=== PATIENT | female | born 1955 | race Caucasian/White ===

== ENCOUNTER → 2018-10-30 | Outpatient (CLI) | payer OTHER ==
[~2018-10-30] MED LIST: FERROUS SU325 MG/TAB PO; TYLENOL 500MG500 MG PO
== END ==
LOC: MC.RAD 10:47
DX: Z12.31 Encounter for screening mammogram for malignant neoplasm of breast (principal)

== ENCOUNTER → 2019-11-21 | Outpatient (CLI) | payer OTHER | LOC: MC.RAD 18:13 | DX: Z12.31 Encounter for screening mammogram for malignant neoplasm of breast (principal) ==

== ENCOUNTER → 2021-12-01 | Outpatient (CLI) | payer OTHER ==
[2021-12-01 11:28] LABS: BASO # 0.1 K/mm3 (0.0-0.2); BASO % 0.6 % (0.0-2.0); EOS # 0.2 K/mm3 (0.0-0.7); EOS % 1.9 % (0.0-4.0); GRAN # 5.4 K/mm3 (1.4-6.5); GRAN % 63.8 % (42.2-75.2); HEMATOCRIT 38.9 % (37.0-47.0); HEMOGLOBIN 13.6 g/dl (12.5-16.0); LYMPH % 23.9 % (20.0-51.0); MEAN CELL VOLUME 86 fl (80.0-100.0); MEAN CORPUSCULAR HEMOGLOBIN 30 pg (27-31); MEAN CORPUSCULAR HGB CONC 35 g/dl (33.0-37.0); MEAN PLATELET VOLUME 9.6 fl (7.4-10.4); MONO # 0.8 K/mm3 (0.1-0.6); MONO % 9.6 % (1.7-9.3); PLATELET COUNT 308 K/mm3 (130-400); REDCELL DISTRIBUTION WIDTH-CV 12.7 % (11.5-14.5)
[2021-12-01 11:50] LABS: ALBUMIN 3.5 gm/dL (3.4-4.8); BILIRUBIN,TOTAL 0.5 mg/dL (0.2-1.2); CALCIUM 9.7 mg/dL (8.4-10.2); CREATININE, serum 0.77 mg/dL (0.57-1.11); POTASSIUM 3.4 mmol/L (3.5-4.5); TOTAL PROTEIN 8.1 gm/dL (6.2-8.1)
[2021-12-01 12:14] LABS: ERYTHROCYTE SEDIMENTATION RATE 72 mm/hr (0-30)
== END ==
LOC: COL.LAB 10:13
PROVIDERS: Family Medicine
DX: R10.32 Left lower quadrant pain (principal)

== ENCOUNTER 2022-01-28 16:01 | Observation (INO) | payer OTHER ==
[~2022-01-28] VITALS: Ht 157.5 cm; Wt 86.4 kg
[2022-01-28 17:03] LABS: BASO # 0.1 K/mm3 (0.0-0.2); BASO % 0.5 % (0.0-2.0); EOS % 0.3 % (0.0-4.0); GRAN # 8.8 K/mm3 (1.4-6.5); GRAN % 78.7 % (42.2-75.2); HEMOGLOBIN 14.5 g/dl (12.5-16.0); LYMPH # 1.5 K/mm3 (1.2-3.4); LYMPH % 13.8 % (20.0-51.0); MEAN CELL VOLUME 86 fl (80.0-100.0); MEAN CORPUSCULAR HEMOGLOBIN 30 pg (27-31); MEAN CORPUSCULAR HGB CONC 35 g/dl (33.0-37.0); MEAN PLATELET VOLUME 9.4 fl (7.4-10.4); MONO # 0.7 K/mm3 (0.1-0.6); MONO % 6.3 % (1.7-9.3); PLATELET COUNT 315 K/mm3 (130-400); RED BLOOD COUNT 4.78 M/mm3 (4.10-5.30); REDCELL DISTRIBUTION WIDTH-CV 12.6 % (11.5-14.5)
[2022-01-28 17:19] LABS: ALBUMIN 3.9 gm/dL (3.4-4.8); BILIRUBIN,TOTAL 0.6 mg/dL (0.2-1.2); C-REACTIVE PROTEIN 1.22 mg/dL (0.00-0.50); CALCIUM 10.3 mg/dL (8.4-10.2); CREATININE, serum 0.83 mg/dL (0.57-1.11); POTASSIUM 3.1 mmol/L (3.5-4.5)
[2022-01-28 18:02] LABS: COLLECTION METHOD CLEAN CATCH
[2022-01-28 18:25] LABS: AMORPHOUS CRYSTAL Present (NOT PRESENT); MUCOUS Present (NOT PRESENT); URINE APPEARANCE Cloudy (CLEAR/HAZY); URINE BACTERIA None Seen /hpf (NONE SEEN); URINE COLOR Yellow (YELLOW)
[2022-01-28 18:26] LABS: PH 8.5 (5.0-8.5); URINE BLOOD Negative (NEGATIVE); URINE GLUCOSE Negative (NEGATIVE); URINE KETONE Negative (NEGATIVE); URINE NITRATE Negative (NEGATIVE); URINE PROTEIN(semi-quant) Negative (NEGATIVE); URINE UROBILINOGEN 0.2 E.U/dL (0.2-1.0)
[2022-01-28] MEDS ORDERED: HCTZ 25MG TAB25 MG PO (18:51)
[2022-01-29] VITALS (11 sets, daily range): BP systolic 120–142; BP diastolic 61–78; PULSE 63–97; TEMP 97.6–99.9
--- NOTE | 2022-01-29 11:28 | NUR ---
Janki: Scientologist Situation: Insight Leader stopped by room on rounds Background: Pt was resting and content Assessment: No needs right now. Pt appreciated the visit Recommendation: Insight Leader will follow up as needed
[2022-01-29] MEDS ORDERED: NORCO 325 MG-51 TAB PO (13:57)
--- NOTE | 2022-01-29 15:29 | NUR ---
PT RESTING IN THE BED, AOX4, DAUGHTER AT THE BEDSIDE, CALL LIGHT IN HAND, DIET ADVANCED, PT IS ORDERING FOOD
--- NOTE | 2022-01-29 15:44 | NUR ---
Patient off unit. Unable to complete intake
--- NOTE | 2022-01-29 19:35 | NUR ---
PT DRESSED, SITTING IN CHAIR AT BEDSIDE. PT READY FOR DISCHARGE. HAS EATEN AND VOIDED, PAIN IS CONTROLLED WITH NORCO. REVIEWED DISCHARGE INSTRUCTIONS WITH PT. REMOVED INT FROM LEFT FOREARM, ANGIOCATH INTACT.
--- NOTE | 2022-01-29 19:45 | NUR ---
PT DISCHARGED TO PRIVATE CAR VIA W/C. COPY OF DISCHARGE INSTRUCTIONS SENT WITH PT. PERSONAL BELONGINGS RETURNED TO PATIENT.
== END 2022-01-29 19:45 | disposition home or self-care (01) ==
LOC: COL.ER 16:01 → SURG 18:37
PROVIDERS: Nurse Practitioner; ADMIT Surgery
DX: K80.00 Calculus of gallbladder with acute cholecystitis without obstruction (principal); E66.01 Morbid (severe) obesity due to excess calories; K31.A19 Gastric intestinal metaplasia without dysplasia, unspecified site
CPT/HCPCS: G0378; J0330; J0696; J1100; J1170; J2250; J2270; J2405; J2543; J2704; J3010; J7030; Q9967

== ENCOUNTER 2022-01-31 07:49 | Emergency (ER) | payer OTHER ==
[~2022-01-31] VITALS: Ht 157.5 cm; Wt 86.4 kg
[~2022-01-31 07:49] MED LIST changes: +HCTZ 25MG TAB25 MG PO; +NORCO 325 MG-51 TAB PO
[2022-01-31 07:55] VITALS: TEMP 98.1
[2022-01-31 08:26] LABS: BASO % 0.3 % (0.0-2.0); EOS % 0.4 % (0.0-4.0); GRAN % 66.5 % (42.2-75.2); HEMOGLOBIN 12.6 g/dl (12.5-16.0); LYMPH # 2.3 K/mm3 (1.2-3.4); LYMPH % 25.3 % (20.0-51.0); MEAN CELL VOLUME 89 fl (80.0-100.0); MEAN CORPUSCULAR HEMOGLOBIN 30 pg (27-31); MEAN CORPUSCULAR HGB CONC 34 g/dl (33.0-37.0); MEAN PLATELET VOLUME 9.5 fl (7.4-10.4); MONO # 0.6 K/mm3 (0.1-0.6); MONO % 7.1 % (1.7-9.3); PLATELET COUNT 277 K/mm3 (130-400); RED BLOOD COUNT 4.16 M/mm3 (4.10-5.30); REDCELL DISTRIBUTION WIDTH-CV 13.4 % (11.5-14.5)
[2022-01-31 08:28] LABS: HEMATOCRIT 36.9 % (37.0-47.0)
[2022-01-31 08:43] LABS: ALBUMIN 2.8 gm/dL (3.4-4.8); BILIRUBIN,TOTAL 0.4 mg/dL (0.2-1.2); CALCIUM 9.2 mg/dL (8.4-10.2); CREATININE, serum 0.77 mg/dL (0.57-1.11); POTASSIUM 3.3 mmol/L (3.5-4.5)
[2022-01-31] MEDS ORDERED: FLAGYL500 MG PO (10:34)
[2022-01-31] MEDS ORDERED: CIPRO 500MG TA500 MG PO (10:34)
[2022-01-31 11:43] VITALS: BP 174/90; PULSE 64
== END 2022-01-31 11:53 | disposition home or self-care (01) ==
LOC: COL.ER 07:49
PROVIDERS: Personal Emergency Response Attendant
DX: K57.32 Diverticulitis of large intestine without perforation or abscess without bleeding (principal); Z88.2 Allergy status to sulfonamides; Z90.49 Acquired absence of other specified parts of digestive tract
CPT/HCPCS: J2270; J2405; J7030; Q9967

== ENCOUNTER 2022-02-12 14:50 | Inpatient (IN) | payer OTHER, MEDICARE ==
[~2022-02-12] VITALS: Ht 157.5 cm; Wt 80.4 kg
[~2022-02-12 14:50] MED LIST changes: +CIPRO 500MG TA500 MG PO; +FLAGYL500 MG PO
[2022-02-12 16:31] LABS: HEMOGLOBIN 12.2 g/dl (12.5-16.0); MEAN CELL VOLUME 88 fl (80.0-100.0); MEAN CORPUSCULAR HEMOGLOBIN 30 pg (27-31); MEAN CORPUSCULAR HGB CONC 34 g/dl (33.0-37.0); MEAN PLATELET VOLUME 8.7 fl (7.4-10.4); PLATELET COUNT 660 K/mm3 (130-400); RED BLOOD COUNT 4.12 M/mm3 (4.10-5.30); REDCELL DISTRIBUTION WIDTH-CV 13.2 % (11.5-14.5)
[2022-02-12 16:32] LABS: HEMATOCRIT 36.1 % (37.0-47.0)
[2022-02-12 16:54] LABS: COLLECTION METHOD CLEAN CATCH
[2022-02-12 17:03] LABS: PH 5.5 (5.0-8.5); URINE APPEARANCE Clear (CLEAR/HAZY); URINE COLOR Yellow (YELLOW)
[2022-02-12 17:04] LABS: URINE GLUCOSE Negative (NEGATIVE); URINE KETONE 3+ (NEGATIVE); URINE NITRATE Positive (NEGATIVE); URINE PROTEIN(semi-quant) 2+ (NEGATIVE)
[2022-02-12 17:05] LABS: URINE BLOOD Negative (NEGATIVE)
[2022-02-12 17:06] LABS: BAND 37 % (0-10); EOSINOPHIL 1 % (0-4); LYMPHOCYTE 12 % (20.0-51.0); NEUTROPHILS 43 % (42.0-75.2); PLATELET ESTIMATE INCREASED (NORMAL)
[2022-02-12 17:07] LABS: MUCOUS Present (NOT PRESENT); SQUAMOUS EPITHELIAL >50 /hpf (0-10); URINE BACTERIA None Seen /hpf (NONE SEEN)
[2022-02-12 17:08] LABS: ALBUMIN 2.4 gm/dL (3.4-4.8); BILIRUBIN,TOTAL 0.8 mg/dL (0.2-1.2); CALCIUM 9.3 mg/dL (8.4-10.2); CREATININE, serum 0.86 mg/dL (0.57-1.11); POTASSIUM 3.3 mmol/L (3.5-4.5); TOTAL PROTEIN 8.1 gm/dL (6.2-8.1)
[2022-02-12 21:26] VITALS: BP 140/71; PULSE 89; TEMP 99.2
--- NOTE | 2022-02-12 21:50 | NUR ---
THE PATIENT ARRIVED VIA CART FROM THE ED. THE PATIENT IS ALERT AND ORIENTED NO S/S OF DISTRESS NOTED. THE PATIENT WAS ORIENTED TO ROOM AND BED CONTROLS. CALL LIGHT WITHIN REACH WELL OTHER PERSONAL BELONGINGS. BED IN LOWEST POSITION.
[2022-02-13] VITALS (7 sets, daily range): BP systolic 115–137; BP diastolic 53–69; PULSE 62–97; TEMP 97.8–99.2
[2022-02-13 06:42] LABS: MEAN CELL VOLUME 89 fl (80.0-100.0); MEAN CORPUSCULAR HGB CONC 34 g/dl (33.0-37.0); MEAN PLATELET VOLUME 9.2 fl (7.4-10.4); RED BLOOD COUNT 3.28 M/mm3 (4.10-5.30); REDCELL DISTRIBUTION WIDTH-CV 13.2 % (11.5-14.5)
[2022-02-13 06:48] LABS: HEMATOCRIT 29.1 % (37.0-47.0); MEAN CORPUSCULAR HEMOGLOBIN 30 pg (27-31)
[2022-02-13 06:49] LABS: HEMOGLOBIN 9.8 g/dl (12.5-16.0); PLATELET COUNT 532 K/mm3 (130-400)
[2022-02-13 06:56] LABS: ALBUMIN 1.7 gm/dL (3.4-4.8); BILIRUBIN,TOTAL 0.4 mg/dL (0.2-1.2); CREATININE, serum 0.65 mg/dL (0.57-1.11); POTASSIUM 3.1 mmol/L (3.5-4.5)
[2022-02-13 07:40] LABS: BAND 15 % (0-10); LYMPHOCYTE 20 % (20.0-51.0); NEUTROPHILS 55 % (42.0-75.2); PLATELET ESTIMATE INCREASED (NORMAL)
[2022-02-13 09:27] LABS: CLOSTRIDIUM DIFF A/B NEG; CLOSTRIDIUM DIFF A/B INTERP No C.diff present
--- NOTE | 2022-02-13 11:52 | NUR ---
brush worker met with patient to complete intake and discuss discharge plan. Patient reports that she lives at home alone in [place]. Patient is independent with her ADL's and does not utilize any DME to assist with mobility. Patient has no home oxygen needs. PCP is Dr. Laura and she uses [facility] in [place] for presciptions. Patient reports that she does not have a DPOA-HC established, but does have 3 daughters. Her daughter Jenni ([phone]) lives the closest. Patient is planning on returning home once medically ready. DIscharge plan: Home
--- NOTE | 2022-02-13 14:16 | NUR ---
Yard Truck Driver rounds: Patient had just returned from radiology. RN had several cares she needed to provide. RN requested no hvac sheet metal installer helper visit at this time.
--- NOTE | 2022-02-14 02:25 | NUR ---
NURSING SHIFT ASSESSMENT COMPLETED. NO S/S OF DISTRESS NOTED. THE PATIENT DENIED PAIN BUT REPORTED NAUSEA. DR. NEFF CONTACTED REGARDING THE PTS CONTINUED NAUSEA EVEN AFTER ZOFRAN GIVEN. NEW ORDER RECEIVED. PERSONAL BELONGINGS WITHIN REACH WELL THE PTS CALL LIGHT. BED IN LOWEST POSITION.
[2022-02-14 03:37] VITALS: BP 133/58; PULSE 59; TEMP 98.7
[2022-02-14 07:34] VITALS: BP 145/69; PULSE 61; TEMP 97.7
--- NOTE | 2022-02-14 08:30 | NUR ---
Pt doing okay this morning. No complaints of pain, just some discomfort with movement. Pt does have complaints of feeling nausated, PRN zofran given. She did order some liquids for breakfast per her diet. She stated the nausea just randomly comes and goes. Pt did get in to the restroom with just some assistance to get out of bed. Assisted pt to the chair. Bed linens changed. Discussed giving her some wipes to freshen up with. Pt denies any other needs, call light within reach
[2022-02-14 11:38] VITALS: BP 140/66; PULSE 62; TEMP 98.1
--- NOTE | 2022-02-14 13:00 | NUR ---
Pt continues to get up to the restroom with standby assist. She does require a little assist to get to a sitting position. Pt reports not having any pain, just discomfort, but continues to be nauseated. PRN phenergan given at this time. Pt refused lunch for this reason.
--- NOTE | 2022-02-14 15:22 | NUR ---
PT resting with eyes closed, even non labored breathing at this time
[2022-02-14 16:10] VITALS: BP 155/65; PULSE 62; TEMP 97.8
--- NOTE | 2022-02-14 17:28 | NUR ---
Pt reports still not having an appetite. She did not order anything to eat. She was able to get some rest after the phenergan was given. Pt states she is unsure if it really helped or not. Pain remains the same, only a little with movement. No needs verbalized
--- NOTE | 2022-02-14 19:49 | NUR ---
PT REPORTS PERSISTENT NAUSEA WITHOUT RELIEF WITH ZOFRAN OR PHENERGAN. DR NEFF NOTIFIED, SCOPALAMINE PATCH ORDERED.
--- NOTE | 2022-02-14 20:16 | NUR ---
PT AWAKE, ALERT AND ORIENTED X4. ASSISTED TO BATHROOM, VOIDS AND BACK TO BED. HAS LEFT ABD ACCORDIAN DRAIN, HAS BROWN DRAINAGE. SCOPALAMINE PATCH PLACED BEHIND LEFT EAR. IVF TO LT AC INFUSING WITHOUT REDNESS OR SWELLING. REPORTS PAIN TO DRAIN SITE WITH ACTIVITY.
[2022-02-14 20:46] VITALS: BP 138/64; PULSE 58; TEMP 97.5
--- NOTE | 2022-02-14 21:58 | NUR ---
MEDICATED WITH PHENERGAN 12.5MG IVPB AND DILAUDID 0.25MG IVP FOR PAIN TO LEFT DRAIN SITE AND PERSISTENT NAUSEA. READY FOR SLEEPING.
[2022-02-15] VITALS (7 sets, daily range): BP systolic 133–159; BP diastolic 59–82; PULSE 55–65; TEMP 98–98.6
--- NOTE | 2022-02-15 04:00 | NUR ---
PT REPORTS RESTING WELL AND IS NO LONGER NAUSEATED. IVF CONTINUE TO LAC WITHOUT REDNESS OR SWELLING.
--- NOTE | 2022-02-15 06:00 | NUR ---
DRAIN WITH 50CC GOMES BROWN DRAINAGE.
[2022-02-15 06:33] LABS: HEMOGLOBIN 10.4 g/dl (12.5-16.0); MEAN CELL VOLUME 92 fl (80.0-100.0); MEAN CORPUSCULAR HEMOGLOBIN 30 pg (27-31); MEAN CORPUSCULAR HGB CONC 33 g/dl (33.0-37.0); MEAN PLATELET VOLUME 9.1 fl (7.4-10.4); PLATELET COUNT 520 K/mm3 (130-400); RED BLOOD COUNT 3.46 M/mm3 (4.10-5.30); REDCELL DISTRIBUTION WIDTH-CV 13.4 % (11.5-14.5)
[2022-02-15 06:38] LABS: HEMATOCRIT 31.8 % (37.0-47.0)
[2022-02-15 06:52] LABS: ALBUMIN 1.7 gm/dL (3.4-4.8); BILIRUBIN,TOTAL 0.2 mg/dL (0.2-1.2); CALCIUM 7.9 mg/dL (8.4-10.2); CREATININE, serum 0.68 mg/dL (0.57-1.11); TOTAL PROTEIN 5.9 gm/dL (6.2-8.1)
[2022-02-15 07:48] LABS: BAND 7 % (0-10); EOSINOPHIL 1 % (0-4); LYMPHOCYTE 22 % (20.0-51.0); NEUTROPHILS 62 % (42.0-75.2); PLATELET ESTIMATE INCREASED (NORMAL)
--- NOTE | 2022-02-15 11:03 | NUR ---
Pt still having some complaints of nausea. PRN given. Also gave her some saltine crackers as she thought maybe having some food in her stomach would help
--- NOTE | 2022-02-15 14:00 | NUR ---
Pt doing okay today. Still having complaints of feeling nauseated. She was able to eat some chicken and mashed potatoes. Pain remains minimal and tolerable. Drain remains intact with CDI dressing
--- NOTE | 2022-02-15 20:44 | NUR ---
PT A&OX4 RESTING IN BED. MED GIVEN AND ASSESSMENT COMPLETE. PT DENIES PN. DRESSING TO LLQ CDI. ACCORDIAN DRAIN IN PLACE W GREEN/BROWN OUTPUT. PT REPORTS NAUSEA. IV TO LAC. NO NEEDS AT THIS TIME. CALL LIGHT WITHIN REACH.
[2022-02-16 04:39] VITALS: BP 150/76; PULSE 66; TEMP 98
[2022-02-16 08:01] VITALS: BP 139/63; PULSE 62; TEMP 98
--- NOTE | 2022-02-16 08:15 | NUR ---
Pt. sitting up in bed. Pt. is A&OX3, assessment complete. INT to lt. ac discontinued and AIVS starting PICC line. Pt. reports no pain but having nausea. Gave phenergan per orders. Pt. denies further needs, call light within reach.
[2022-02-16 11:15] LABS: BILIRUBIN,TOTAL 0.3 mg/dL (0.2-1.2); CALCIUM 8.3 mg/dL (8.4-10.2); CREATININE, serum 0.65 mg/dL (0.57-1.11); POTASSIUM 3.2 mmol/L (3.5-4.5); TOTAL PROTEIN 6.3 gm/dL (6.2-8.1)
[2022-02-16 11:19] LABS: MAGNESIUM 1.8 mg/dL (1.6-2.6); PHOSPHOROUS 2.8 mg/dL (2.3-4.7)
[2022-02-16 13:12] VITALS: BP 165/56; PULSE 65; TEMP 98
--- NOTE | 2022-02-16 20:11 | NUR ---
PT A&OX4 RESTING IN BED. TPN AND ABX RUNNING IN KATELYNN PICC. PT DENIES PN. LLQ ABD INCISION CDI. ACCORDIAN DRAIN IN PLACE W MINIMAL GREEN/BROWN OUTPUT. PT DENIES PN, REPORTS NAUSEA IMPROVING. VS STABLE AND TELE IN PLACE. NO NEEDS AT THIS TIME. CALL LIGHT WITHIN REACH.
[2022-02-16 20:18] VITALS: BP 139/66; PULSE 75; TEMP 98.3
[2022-02-17] VITALS (7 sets, daily range): BP systolic 127–150; BP diastolic 60–73; PULSE 60–68; TEMP 98–98.5
[2022-02-17 07:00] LABS: CALCIUM 8.2 mg/dL (8.4-10.2); CREATININE, serum 0.65 mg/dL (0.57-1.11); MAGNESIUM 1.9 mg/dL (1.6-2.6); PHOSPHOROUS 3.6 mg/dL (2.3-4.7); POTASSIUM 4.1 mmol/L (3.5-4.5)
[2022-02-17 07:02] LABS: HEMOGLOBIN 11.2 g/dl (12.5-16.0); MEAN CELL VOLUME 90 fl (80.0-100.0); MEAN CORPUSCULAR HEMOGLOBIN 29 pg (27-31); MEAN CORPUSCULAR HGB CONC 33 g/dl (33.0-37.0); MEAN PLATELET VOLUME 9.2 fl (7.4-10.4); PLATELET COUNT 493 K/mm3 (130-400); RED BLOOD COUNT 3.81 M/mm3 (4.10-5.30); REDCELL DISTRIBUTION WIDTH-CV 13.2 % (11.5-14.5)
[2022-02-17 07:10] LABS: HEMATOCRIT 34.3 % (37.0-47.0)
[2022-02-17 07:56] LABS: BAND 11 % (0-10); EOSINOPHIL 6 % (0-4); LYMPHOCYTE 25 % (20.0-51.0); NEUTROPHILS 45 % (42.0-75.2); PLATELET ESTIMATE INCREASED (NORMAL)
--- NOTE | 2022-02-17 08:20 | NUR ---
Pt. sitting up in bed. Pt. is a&OX3, assessment complete. PICC to rt. upperarm patent, TPN infusing per orders. Pt. reports feeling slightly nauseated, giveing zofran. Accordian drain to abd with minimal brown drainage at this time. Pt. denies pain or other needs, call light within reach.
[2022-02-18 07:24] LABS: CALCIUM 8.5 mg/dL (8.4-10.2); CREATININE, serum 0.65 mg/dL (0.57-1.11); PHOSPHOROUS 3.8 mg/dL (2.3-4.7); POTASSIUM 4.3 mmol/L (3.5-4.5)
[2022-02-18 08:14] VITALS: BP 110/62; PULSE 68; TEMP 98.1
--- NOTE | 2022-02-18 10:00 | NUR ---
Pt. sitting up in bed. Pt. is A&OX3, assessment complete. PICC to rt. upper arm patent. Pt. denies nausea or pain. Call light within reach.
[2022-02-18 12:41] VITALS: BP 114/67; PULSE 68; TEMP 98.6
[2022-02-18 15:56] VITALS: BP 129/66; PULSE 73; TEMP 98.5
[2022-02-18 19:38] VITALS: BP 124/66; PULSE 74; TEMP 98.3
--- NOTE | 2022-02-18 20:00 | NUR ---
SHIFT REPORT REC'D FROM SEAMUS Boswell RN. PT RESTING IN BED. NO NEEDS AT THIS TIME. PT UP INDEPENDENTLY. MINIMAL RETURN FROM [facility]. DR CASTILLO CALLED FOR UPDATE. CALL LIGHT IN REACH.
[2022-02-19 00:11] VITALS: BP 144/74; PULSE 74; TEMP 98.2
[2022-02-19 03:54] VITALS: BP 140/69; PULSE 56; TEMP 97.9
--- NOTE | 2022-02-19 06:09 | NUR ---
PT STILL HAS GENERALIZED ITCHINESS. SEE MAR FOR BENADRYL GIVEN. DENIES PAIN. CALL LIGHTIN REACH. UNEVENTFUL NIGHT.
[2022-02-19 07:16] LABS: HEMOGLOBIN 12.1 g/dl (12.5-16.0); MEAN CELL VOLUME 89 fl (80.0-100.0); MEAN CORPUSCULAR HEMOGLOBIN 30 pg (27-31); MEAN CORPUSCULAR HGB CONC 33 g/dl (33.0-37.0); MEAN PLATELET VOLUME 9.2 fl (7.4-10.4); PLATELET COUNT 443 K/mm3 (130-400); RED BLOOD COUNT 4.09 M/mm3 (4.10-5.30); REDCELL DISTRIBUTION WIDTH-CV 13.2 % (11.5-14.5)
[2022-02-19 07:19] LABS: HEMATOCRIT 36.3 % (37.0-47.0)
[2022-02-19 07:47] LABS: BAND 3 % (0-10); EOSINOPHIL 4 % (0-4); LYMPHOCYTE 21 % (20.0-51.0); NEUTROPHILS 64 % (42.0-75.2); PLATELET ESTIMATE NORMAL (NORMAL)
--- NOTE | 2022-02-19 08:00 | NUR ---
A&O. VSS. DENIES PAIN OR NAUSEA. ABD IS ROUND, SOFT AND WITH POSITIVE BOWL SOUNDS. SHE REPORTS SHE TOLERATED HER BREAKFAST WELL. LOW FIBER DIET. PLAN IS TO DO A CT TODAY AND PENDING RESULTS PATIENT MIGHT DISCHARGE HOME. SHE IS VERY EXCITED AT THE POSSIBILITY OF GOING HOME AND STATES SHE FEELS GOOD. HEAD TO TOE ASSESSMENT WNL. RIGHT PICC LINE TO INT. INDEPENDENT IN ROOM. NO OTHER NEEDS AT THIS TIME. CALL LIGHT IN REACH.
[2022-02-19 08:02] VITALS: BP 133/62; PULSE 80; TEMP 98.6
[2022-02-19] MEDS ORDERED: NORCO 325 MG-51 TAB PO (10:05)
[2022-02-19] MEDS ORDERED: AMOXICILLIN 8751 TAB PO (10:06)
[2022-02-19] MEDS ORDERED: CIPRO 500MG TA500 MG PO (10:06)
[2022-02-19 12:14] VITALS: BP 123/68; PULSE 92; TEMP 98.6
--- NOTE | 2022-02-19 13:05 | NUR ---
PATIENT GOING DOWN TO CT
--- NOTE | 2022-02-19 13:20 | NUR ---
Report received, assumed care for shift.
--- NOTE | 2022-02-19 13:20 | NUR ---
REPORTED OFF TO BARRON DOOLEY.
--- NOTE | 2022-02-19 17:34 | NUR ---
Discharge instructions given both verbal and handwritten. Discussed f/u appt, drain care, home medications, s/s of infection, activity and diet. PICC was removed earlier by JERILYN. Denies questions/concerns.
--- NOTE | 2022-02-19 17:55 | NUR ---
Escorted off laird in in wheelchair by PCT in stable condition.
== END 2022-02-19 17:55 | disposition home or self-care (01) | DRG 392 ==
LOC: COL.ER 14:50 → SURG 18:49
PROVIDERS: Emergency Medicine; Surgery; ADMIT Surgery
PROC: 0W9H30Z Drainage of Retroperitoneum with Drainage Device, Percutaneous Approach (ICD-10-PCS; principal; 2022-02-13)
PROC: 02H633Z Insertion of Infusion Device into Right Atrium, Percutaneous Approach (ICD-10-PCS; 2022-02-16)
DX: K57.20 Diverticulitis of large intestine with perforation and abscess without bleeding (principal); N39.0 Urinary tract infection, site not specified; K56.7 Ileus, unspecified; E44.0 Moderate protein-calorie malnutrition; I10 Essential (primary) hypertension; D72.829 Elevated white blood cell count, unspecified; D75.839 Thrombocytosis, unspecified; B96.89 Other specified bacterial agents as the cause of diseases classified elsewhere; B95.2 Enterococcus as the cause of diseases classified elsewhere; B96.1 Klebsiella pneumoniae [K. pneumoniae] as the cause of diseases classified elsewhere; Z90.49 Acquired absence of other specified parts of digestive tract; Z88.2 Allergy status to sulfonamides; Z90.710 Acquired absence of both cervix and uterus; Z68.34 Body mass index [BMI] 34.0-34.9, adult
CPT/HCPCS: C1729; C1751; C1769; C1892; J1170; J1650; J2270; J2405; J2543; J2550; J3411; J3480; J7030; J7120; Q9967

== ENCOUNTER → 2023-02-09 | Outpatient (CLI) | payer OTHER, MEDICARE ==
[~2023-02-09] MED LIST changes: +AMOXICILLIN 8751 TAB PO; +LEVAQUIN 750MG750 M1 PO; +PROAIR HFA0.09 MG/AC IH; +TRELEGY ELLIPT1 EACH IH
== END ==
LOC: MC.RAD 12:23
DX: D05.11 Intraductal carcinoma in situ of right breast (principal)
CPT/HCPCS: A4648

== ENCOUNTER 2023-02-10 08:22 | Day surgery (SDC) | payer OTHER, MEDICARE ==
[~2023-02-10] VITALS: Ht 157.5 cm; Wt 86.1 kg
[~2023-02-10 08:22] MED LIST changes: -PROAIR HFA0.09 MG/AC IH; -TRELEGY ELLIPT1 EACH IH
[2023-02-10] MEDS ORDERED: PROAIR HFA0.09 MG/AC IH (08:45)
[2023-02-10] MEDS ORDERED: TRELEGY ELLIPT1 EACH IH (08:45)
[2023-02-10 09:12] VITALS: BP 148/67; PULSE 54; TEMP 98
--- NOTE | 2023-02-10 09:14 | NUR ---
0827 PT AMBULATORY TO BAY 6 WITH STEADY GAIT, BREATHING EVEN AND UNLABORED. PT IS ALERT AND ORIENTED, ACCOMPANIED TODAY BY HER 2 DAUGHTERS. CONSENTES REVIEWED AND SIGNED BY PT. IV ESTABLISHED. LR INFUSING VIA GRAVITY AT [facility]. CALL LIGHT IN REACH. WARM BLANKET PROVIDED.
[2023-02-10] MEDS ORDERED: NORCO 325 MG-51 TAB PO (11:19)
[2023-02-10 11:55] VITALS: BP 123/76; PULSE 66; TEMP 97.8
[2023-02-10 12:10] VITALS: BP 122/81; PULSE 62
[2023-02-10 12:25] VITALS: BP 124/60; PULSE 60
[2023-02-10 12:29] VITALS: BP 145/67; PULSE 71; TEMP 97.7
--- NOTE | 2023-02-10 12:40 | NUR ---
1155 RETURNS TO ROOM 6 PER CART. AWAKE, AELRT. HOB ELEVATED 60 DEGREES. RESP UNLABORED. VITAL SIGNS OBTAINED INCISION RIGHT BREAST INTACT, NO REDNESS OR DRAINAGE OBSERVED. AREA SOFT WITH GENTLE PALPATION. REPORTS INTERMITTENT DISCOMFORT. DENIES NEED FOR PAIN MED. ICE PACK IN PLACE. CALL LIGHT AT SIDE. DAUGHTERS IN ROOM 1210 HOB ELEVATED 80 DEGREES. TOLERATES PO JUICE WITHOUT NAUSEA 1215 DISCHARGE INSTRUCTIONS REVIEWED. PATIENT AND DAUGHTERS VERBALIZE UNDERSTANDING. COPY PROVIDED IN DISCHARGE FOLDER 1230 SITS ON EDGE OF CART. DRESSES SELF
== END 2023-02-10 12:40 | disposition home or self-care (01) ==
LOC: SDCO 08:22
DX: D05.11 Intraductal carcinoma in situ of right breast (principal)
CPT/HCPCS: A4648; J0690; J1100; J2250; J2405; J2704; J2795; J3010; J7120